=== PATIENT | female | born 1995 | race Hispanic/Latino ===

== ENCOUNTER 2025-02-13 18:12 | Emergency (ER) | payer OTHER ==
[~2025-02-13] VITALS: Ht 160 cm; Wt 105.7 kg
[2025-02-13 18:43] LABS: ADD UA MICROSCOPIC YES; APPEARANCE,URINE TURBID (CLEAR); GLUCOSE, URINE (UA) >=1000 mg/dL (NEGATIVE); LEUKOCYTE ESTERASE ,URINE 500 Leu/uL (NEGATIVE); NITRATE,URINE NEGATIVE (NEGATIVE); OCCULT BLOOD,URINE MODERATE (NEGATIVE)
[2025-02-13 18:55] LABS: SQUAMOUS EPITHELIAL CELL,UR MANY /HPF (0-2)
[2025-02-13 18:57] LABS: IMMATURE GRANULOCYTE ABSOLUTE 0.04 K/uL (0-1); NUCLEATED RED BLOOD CELLS 0.0 % (0.0-0.19); PLATELET COUNT (AUTO) 221 K/uL (130-400); RED BLOOD CELL COUNT(AUTO) 4.69 MIL/uL (4.00-5.50); RED CELL DISTRIBUTION WIDTH 12.3 % (11.0-15.5); WHITE BLOOD COUNT (AUTO) 6.5 K/uL (4.8-10.8)
[2025-02-13 19:04] LABS: CREATININE 0.6 mg/dL (0.5-1.0); GLOMERULAR FILTR. RATE CALC 123.0 mL/min (>90); GLUCOSE,RANDOM 200.0 mg/dL (70-105); SODIUM SERUM 135.0 mmol/L (136-145); UREA NITROGEN, BLOOD 7.0 mg/dL (7-18)
--- NOTE | 2025-02-13 19:05 | EKG ---
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
[2025-02-13 19:10] LABS: CREATINE KINASE, TOTAL 65.0 U/L (21-232)
--- NOTE | 2025-02-13 20:25 | HMCIMG ---
EXAM: CR Chest, 1 view CLINICAL HISTORY: Chest pain. COMPARISON: None provided. FINDINGS: The lungs show no infiltrates or other acute findings. No pleural effusion or pneumothorax. The cardiomediastinal silhouette is within normal limits. No acute osseous abnormality. IMPRESSION: No acute cardiopulmonary process is evident. /[place]
[2025-02-13] MEDS ORDERED: MACR100 PO (21:25)
--- NOTE | 2025-02-13 21:27 | ERN ---
General Chief Complaint: Chest Pain Stated Complaint: CHEST PAIN/ SOB Time Seen by MD: 18:16 Time Seen by Midlevel: 18:16 Source: patient History of Present Illness Initial Comments Patient is 29-year-old female who was recently diagnosed with high cholesterol and type 2 diabetes presents to the emergency department for evaluation intermittent chest pain. The pain initially started approximately 1 week ago. Today she had another episode so she decided to report to ER for further evaluation. Allergies: Coded Allergies: No Known Allergies (Unverified Allergy, Unknown, 02/13/25) Past Medical History Past Medical History: Diabetes-Type II, High Cholesterol Medical History Other: FATTY LIVER Past Surgical History: None ROS Dictation CONSTITUTIONAL: Negative except for HPI HEAD/FACE: Negative except for HPI EENT: Negative except for HPI RESPIRATORY: Negative except for HPI GASTROINTESTINAL/ABDOMINAL: Negative except for HPI GENITOURINARY: Negative except for HPI MUSCULOSKELETAL: Negative except for HPI INTEGUMENTARY: Negative except for HPI NEUROLOGICAL/PSYCH: Negative except for HPI HEMATOLOGIC/LYMPHATIC: Negative except for HPI All Systems Negative, Except as noted above. 13 point review of systems assessed and all negative except for above. Physical Exam Physical Exam Dictation Vital Signs reviewed General Appearance: Alert, oriented x 3, no acute distress, well developed, nourished. Head and Face: non-traumatic. Eyes: PERRL, pink conjunctivas, eyelid no trauma, anterior chamber with arcus senilis. Ears: Pinnas intact and no signs of trauma or erythema ear canals clear and no discharge TM no erythema Nose: No discharge, no bleeding. Oropharynx: Mouth normal, tongue pink, pharynx clear,no erythema, tonsils no exudates, no abscesses noted, mucous membrane moist Neck: Supple, non-tender, no thyromegaly, no masses, no JVD, no bruits Breast:Deferred Chest:No tenderness, no crepitus, no paradoxical movement, no retractions Lungs:Clear, well-ventilated, symmetric, no rales, no wheezing, no rhonchi, no stridor, good breath sounds bilaterally Heart: Regular rate, regular rhythm, no murmur, no gallops Vascular: no peripheral edema, Abdomen: Soft, positive bowel sounds, nondistended, no guarding, nontender, no rebound, no masses no hepatomegaly, no splenomegaly, no Childs's sign, no hernias. Rectal: Deferred Genital: Deferred Neurological: Normal speech, motor function intact, sensory function intact Musculoskeletal: Neck nontender, full range of motion, back nontender, full range of motion, Extremities: nontender, full range of motion Skin: Color pink, dry, no turgor, no rash, no lacerations, no abrasions, no contusions. Lymphatic: Deferred Results Laboratory and Microbiology Lab and Micro Result Laboratory Tests Test 02/13/25 18:20 02/13/25 18:40 02/13/25 19:49 Urine Color YELLOW (YELLOW) Urine Appearance TURBID (CLEAR) Urine pH 6.0 (5.0-8.0) Urine Specific [place] 1.030 (1.001-1.031) Urine Protein 30 mg/dL (NEGATIVE) H Urine Glucose (UA) >=1000 mg/dL (NEGATIVE) H Urine Ketones NEGATIVE mg/dL (NEGATIVE) Urine Occult Blood MODERATE (NEGATIVE) H Urine Nitrate NEGATIVE (NEGATIVE) Urine Bilirubin NEGATIVE mg/dL (NEGATIVE) Urine Urobilinogen 0.2 mg/dL (0.2-1.0) Urine Leukocyte Esterase 500 [place]/uL (NEGATIVE) H Urine RBC >100 /HPF (0-1) H Urine WBC TNTC /HPF (0-1) H Urine Squamous Epithelial Cells MANY /HPF (0-2) Urine Bacteria RARE /HPF (None Seen) White Blood Count 6.5 K/uL (4.8-10.8) Red Blood Count 4.69 MIL/uL (4.00-5.50) Hemoglobin 13.4 g/dL (12.0-16.0) Hematocrit 39.0 % (36-48) Mean Corpuscular Volume 83.2 fL (79-99) Mean Corpuscular Hemoglobin 28.6 pg (27.0-33.0) Mean Corpuscular Hemoglobin Concent 34.4 g/dL (32.0-36.0) Red Cell Distribution Width 12.3 % (11.0-15.5) Platelet Count 221 K/uL (130-400) Mean Platelet Volume 9.9 fL (7.5-10.5) Immature Granulocyte % (Auto) 0.6 % (0-1) Neutrophils (%) (Auto) 59.4 % (40.0-77.0) Lymphocytes (%) (Auto) 30.0 % (21.0-51.0) Monocytes (%) (Auto) 7.3 % (3.0-13.0) Eosinophils (%) (Auto) 1.9 % (0.0-8.0) Basophils (%) (Auto) 0.8 % (0.0-5.0) Neutrophils # (Auto) 3.9 K/uL (1.8-7.7) Lymphocytes # (Auto) 1.9 K/uL (1.0-4.8) Monocytes # (Auto) 0.5 K/uL (0.1-1.0) Eosinophils # (Auto) 0.12 K/uL (0.00-0.70) Basophils # (Auto) 0.05 K/uL (0.00-0.20) Absolute Immature Granulocyte (auto 0.04 K/uL (0-1) Nucleated Red Blood Cells 0.0 % (0.0-0.19) Sodium Level 135 mmol/L (136-145) L Potassium Level 3.6 mmol/L (3.5-5.1) Chloride Level 98 mmol/L (101-111) L Carbon Dioxide Level 31 mmol/L (21-32) Blood Urea Nitrogen 7 mg/dL (7-18) Creatinine 0.6 mg/dL (0.5-1.0) Glomerular Filtration Rate Calc 123 mL/min (>90) Random Glucose 200 mg/dL (70-105) H Total Calcium 8.8 mg/dL (8.5-10.1) Magnesium Level 1.60 mg/dL (1.80-2.40) L Total Creatine Kinase 65 U/L (21-232) Troponin I High Sensitivity < 4 ng/L (4-50) L < 4 ng/L (4-50) L Serum Test, Qualitative NEGATIVE (NEGATIVE) D-Dimer Quantitative (PE/DVT) 324 ng/mL (0-500) Labs Reviewed?: Yes MDM MDM: Differential diagnosis: Acute coronary syndrome, pneumonia, pneumothorax, pulmonary embolism There are no social concerns with this patient. Prescription drug management Prescriptions will include: Macrobid Medical management and examination interpretation discussions were had by me with other qualified healthcare professionals as indicated for the patient's care. ED Course Orders Procedure Category Date Status Time 12 Lead Ekg Tracing- EKG 02/13/25 Complete Technical 18:16 Cbc With Differential LAB 02/13/25 Complete 18:16 Basic Metabolic Panel LAB 02/13/25 Complete 18:16 Creatine Kinase, Total LAB 02/13/25 Complete 18:16 Magnesium LAB 02/13/25 Complete 18:16 Troponin I High LAB 02/13/25 Complete Sensitivity 18:16 Testing, LAB 02/13/25 Complete Serum Hcg 18:16 Chest 1vw RAD 02/13/25 Resulted 18:16 Urinalysis Profile LAB 02/13/25 Complete 18:19 Culture Urine GAMALIEL 02/13/25 In Process 18:43 Troponin I High LAB 02/13/25 Complete Sensitivity 19:38 D-Dimer LAB 02/13/25 Complete 19:38 Ketorolac PHA 02/13/25 Complete Tromethamine 15mg/Ml 20:07 Ketorolac PHA 02/13/25 Complete Tromethamine 15mg/Ml 20:12 Current Medications Medications (Trade) Dose Ordered Sig/Alonso Route PRN Reason Start Time Stop Time Status Last Admin Dose Admin Ketorolac Tromethamine (toRADol) 15 mg STAT STAT IV 02/13/25 20:07 02/13/25 20:13 DC 02/13/25 20:14 Ketorolac Tromethamine (toRADol) 15 mg STK-MED ONCE .ROUTE 02/13/25 20:12 02/13/25 20:13 DC Vital Signs Date Time Temp Pulse Resp B/P (MAP) Pulse Ox O2 Delivery O2 Flow Rate FiO2 02/13/25 19:45 97.9 87 18 121/84 98 Room Air* 0 21 02/13/25 18:47 88 17 134/88 98 Room Air* 0 21 02/13/25 18:20 97.9 88 18 134/87 98 Room Air 0 DX & DISP Disposition: Discharge Departure Impression: Primary Impression: Non-cardiac chest pain Additional Impression: Urinary tract infection Condition: Stable Scripts Nitrofurantoin/Nitrofuran Mac (Macrobid) 100 Mg Cap 1 CAP PO BID for 5 Days, #10 CAP 0 Refills Prov: MAHESH MERCER 02/13/25 Additional Instructions: Your blood work today is unremarkable. Your EKG shows no signs of a heart attack. Your two sets cardiac enzymes (Troponin level) are normal. Your D-dimer which is a test used to rule out a blood clot is normal. Your chest x-ray is normal. Your urinalysis is consistent with infection. I have given you a prescription for oral antibiotics. Please follow up with your primary care doctor for further evaluation. If your symptoms persist you may need to see a train brake operator outpatient. Referrals: KUSH GAMEZ (PCP) Time of Disposition: 21:25 I have reviewed the case, and I agree with, Diagnosis and Plan I performed the substantive portion of the visit. I have reviewed and siddharth giles made and approve the management plan that is documented in the note by myself or the ANA LAURA. I acknowledge for responsibility for the patient's management plan. MAHESH MERCER Feb 13, 2025 21:27
[2025-02-13 21:30] VITALS: BP 116/78; PULSE 81; RESP 18; TEMP 97.9; O2SAT 98
== END 2025-02-13 21:43 | disposition home or self-care (01) ==
LOC: EDH 18:12
DX: R07.89 Other chest pain (principal); N39.0 Urinary tract infection, site not specified; E11.9 Type 2 diabetes mellitus without complications; E78.00 Pure hypercholesterolemia, unspecified
CPT/HCPCS: 99285; 96374; 71045; 82550; 83735; 84484 ×2; 80048; 84703; 85025; 85378; 87086; 81001; 36415; 93005; J1885